=== PATIENT | female | born 1960 | race Caucasian/White ===

== ENCOUNTER 2016-11-14 13:31 | Outpatient (CLI) | payer MEDICAID | END 2016-11-14 13:32 | disposition critical access hospital (66) | DX: M54.9 Dorsalgia, unspecified (principal) | CPT/HCPCS: A0425; A0429 ==

== ENCOUNTER 2016-11-14 13:41 | Emergency (ER) | payer MEDICAID ==
[2016-11-14 14:06] VITALS: BP 152/118
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
[2016-11-14] MEDS ORDERED: HYDROcod/ACETAM 5/325 MG TABLET PO STA (14:40)
[2016-11-14] MEDS ORDERED: HYDROcod/ACETAM 5/325 MG TABLET ONE (14:43)
== END 2016-11-14 16:39 | disposition home or self-care (01) ==
LOC: ED 13:41
DX: M54.5 Low back pain (principal); F41.9 Anxiety disorder, unspecified; Z59.0 Homelessness; R03.0 Elevated blood-pressure reading, without diagnosis of hypertension; J45.909 Unspecified asthma, uncomplicated
CPT/HCPCS: 99283; A9270

== ENCOUNTER 2016-11-18 11:52 | Emergency (ER) | payer MEDICAID ==
[2016-11-18 12:14] VITALS: BP 140/77
--- NOTE | 2016-11-18 13:55 | ED Physician Documentation ---
History of Present Illness - Stated complaint Stated Complaint: BACK PX,COLD - Chief complaint Chief Complaint: General - History obtained from History obtained from: Patient - History of Present Illness Pain level max: 10 Pain level now: 10 - Additonal information Additional information: Patient with chronic back pain. States she was written pain meds here 3 days ago , but was unable to fill the entire rx. Here requesting more pain meds. no new complaints. Review of Systems Constitutional: denies: Fever GI: denies: Vomiting : denies: Incontinent Neurologic: denies: Focal weakness, Numbness PD PAST MEDICAL HISTORY - Past Medical History Respiratory: Asthma GI: Ulcers Psych: ADD/ADHD Musculoskeletal: Chronic back pain - Past Surgical History Past Surgical History: Yes General: Bowel surgery - Present Medications Home Medications: Ambulatory Orders Medication Instructions Recorded Confirmed Dextroamphetamine/Amphetamine 10 mg PO TID 11/14/16 11/14/16 [Dextroamp-Amphet ER 10 mg Cap] HYDROcod/ACETAM 5/325 [[place] 5/325] 1 tab PO TID 11/14/16 11/14/16 Hydrocodone/Acetaminophen [[place] 1 each PO TID PRN #60 tablet 11/14/16 10-325 Tablet] - Allergies Allergies/Adverse Reactions: Allergies Allergy/AdvReac Type Severity Reaction Status Date / Time Penicillins Allergy Unknown Verified 11/14/16 13:49 - Social History Does the pt smoke?: No Smoking Status: Never smoker Does the pt drink ETOH?: No Does the pt have substance abuse?: Yes - POLST Patient has POLST: No PD ED PE NORMAL - Vitals Vital signs reviewed: Yes - General General: Alert and oriented X 3, No acute distress - Respiratory Respiratory: No respiratory distress, Clear bilaterally - Abdomen Abdomen: Soft, Non tender - Back Back: No spinal TTP - Derm Derm: Warm and dry - Neuro Neuro: Alert and oriented X 3 Results - Vitals Vitals: Vital Signs - 24 hr 11/18/16 12:12 Temperature 36.3 C L Heart Rate 89 Respiratory 12 Rate Blood Pressure 140/77 H O2 Saturation 100 Oxygen O2 Source Room air PD MEDICAL DECISION MAKING - ED course Complexity details: reviewed old records, considered differential, d/w patient ED course: Patient is a 56-year-old female who presents to the emergency department requesting a refill of pain medications. She states she was unable to fill the entire prescription she was given 3 days ago. Explained to the patient that is against departmental policy to refill lost or stolen narcotic pain medications. She will follow-up with her primary care provider for further narcotics. Patient counseled regarding signs and symptoms for which I believe and urgent re -evaluation would be necessary. Patient with good understanding of and agreement to plan and is comfortable going home at this time This document was made in part using voice recognition software. While efforts are made to proofread this document, sound alike and grammatical errors may occur. Departure - Departure Disposition: 01 Home, Self Care Clinical Impression: Homelessness, Anxiety Chronic back pain Qualifiers: Back pain location: thoracic back pain Back pain laterality: left Qualified Code(s): M54.6 - Pain in thoracic spine Condition: Good Instructions: ED Chronic Pain Management Follow-Up: your,doctor in 1 week [Other] Comments: You need to contact your regular doctor about your narcotic prescription medications. We cannot refill them today. Discharge Date/Time: 11/18/16 14:12
== END 2016-11-18 14:12 | disposition home or self-care (01) ==
LOC: ED 11:52
DX: M54.6 Pain in thoracic spine (principal); G89.29 Other chronic pain; J45.909 Unspecified asthma, uncomplicated; Z59.0 Homelessness; F41.9 Anxiety disorder, unspecified
CPT/HCPCS: 99282

== ENCOUNTER 2016-11-20 10:32 | Outpatient (CLI) | payer MEDICAID | END 2016-11-20 10:33 | disposition critical access hospital (66) | LOC: EMS 10:32 | PROVIDERS: ATTEND Surgery | DX: R07.81 Pleurodynia (principal) | CPT/HCPCS: A0425; A0429 ==

== ENCOUNTER 2016-11-20 10:55 | Emergency (ER) | payer MEDICAID ==
[2016-11-20 11:05] VITALS: BP 154/101
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
[2016-11-20] MEDS ORDERED: HYDROcod/ACETAM 5/325 MG TABLET PO STA (11:56)
[2016-11-20] MEDS ORDERED: HYDROcod/ACETAM 5/325 MG TABLET ONE (12:14)
--- NOTE | 2016-11-20 13:24 | XRAY Preliminary Report ---
Exam: XR Ribs w/PA Chest LT IMPRESSION: 1. Healing (subacute) nondisplaced right sixth rib fracture. 2. No other acute osseous abnormality. No acute or subacute left rib fracture. [facility] SITE ID: [id number]
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
== END 2016-11-20 13:05 | disposition home or self-care (01) ==
LOC: EDUNIT# → ED 10:55
DX: M54.6 Pain in thoracic spine (principal); S22.31XD Fracture of one rib, right side, subsequent encounter for fracture with routine healing; Y09 Assault by unspecified means; Z59.0 Homelessness
CPT/HCPCS: 71101; 99283; A9270

== ENCOUNTER 2016-12-06 13:01 | Emergency (ER) | payer MEDICAID ==
[2016-12-06 13:12] VITALS: BP 158/101
== END 2016-12-06 16:05 | disposition left against medical advice (07) ==
LOC: ED 13:01
DX: Z53.21 Procedure and treatment not carried out due to patient leaving prior to being seen by health care provider (principal)
CPT/HCPCS: 99281

== ENCOUNTER 2016-12-07 11:07 | Outpatient (CLI) | payer MEDICAID | END 2016-12-07 11:08 | disposition EMS.NT | LOC: EMS 11:07 | PROVIDERS: ATTEND Surgery | DX: G89.29 Other chronic pain (principal) ==

== ENCOUNTER 2016-12-07 11:30 | Emergency (ER) | payer MEDICAID ==
[2016-12-07 11:50] VITALS: BP 168/111
[2016-12-07] MEDS ORDERED: KETOROLAC 60 MG/2 ML VIAL IM STA (12:10)
[2016-12-07] MEDS ORDERED: KETOROLAC 60 MG/2 ML VIAL ONE (12:19)
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
== END 2016-12-07 13:09 | disposition home or self-care (01) ==
LOC: ED 11:30
DX: M25.561 Pain in right knee (principal); G89.29 Other chronic pain; J45.909 Unspecified asthma, uncomplicated; Z87.11 Personal history of peptic ulcer disease; Z59.0 Homelessness
CPT/HCPCS: 21315; 96372; 99283